=== PATIENT | female | born 1995 | race Hispanic/Latino ===

== ENCOUNTER 2018-10-24 20:00 | Inpatient (IN) | payer MEDICAID, SELFPAY ==
[2018-10-24] MEDS: Lactated Ringer's 1,000 ML IV SCH (21:00)
--- NOTE | 2018-10-24 21:09 | PDOC.FPROB ---
FMR OB H&P: HPI - History of Present Illness Chief Complaint: medically indicated IOL for gHTN Indentification: 23 yo @ 39.3 wk by 11.5 wk sono History of Present Illness: 23 yo @ 39.3 wk by 11.5 wk sono presents for medically indicated IOL 2/ 2 gHTN (starting at 36 wks). Baby is moving well, no contractions, no VB/LOF/ abnormal discharge. complicated by fractured care and obesity. Primary Care Physician: Sumanth FMR OB H&P: Current - Care : 2 Para: 1001 Gestational age: 39.3 Due date: 10/28/18 Dating Criteria: 11.5 wk sono Course/Complications: gHTN, obesity, fractured care Patient had itchy palms, bile acid level was normal. - OB Labs Blood type: A RH: positive Antibody Screen: negative HIV: negative RPR: negative HepBsAg: negative Rubella: immune 1 hour gtt: 120 GBS: negative H&H: - Anatomy Survey Anatomy survey: Normal. Anterior placent. No previa. FMR OB H&P: History - Past Medical History PMH: Obesity - OB History OB History: 1st : delivered via at 38 wks, patient had HTN at delivery - Surgical History Sx History: None - Social History Social History: Denies tobacco, alcohol, or drug use - Family History Family History: DM in mother and father HTN in father Denies fam history of cardiac problems Pt's spouse has previous child with autism. FMR OB H&P: ROS - Review of Systems General: denies: fever/chills Eyes: denies: eye pain, vision changes, scotomas ENT: denies: nasal congestion, rhinorrhea, ear pain, sore throat Cardiovascular: reports: edema (in hands). denies: chest pain, palpitation Respiratory: reports: shortness of breath. denies: cough, congestion Gastrointestinal: denies: abdominal pain, nausea, vomiting, diarrhea, constipation, bright red blood Genitourinary (Female): reports: vaginal pressure. denies: dysuria, hematuria, vaginal discharge, vaginal pain, vaginal bleeding, contractions Musculoskeletal: denies: pain, stiffness Integumentary: denies: rash, lesions Breast: denies: skin changes FMR OB H&P: Vital Signs - Maternal Vital signs: BP 138/89, Hr 98, R 16 T 98.1 - Heart Tones Baseline: 135 Variability: moderate Acceleration: present Deceleration: absent [place] contractions every: none FMR OB H&P: Physical Exam - Physical Exam General: NAD, awake, alert and oriented HEENT: normocephalic and atraumatic, PERRLA, MMM, conjunctiva clear, grossly normal hearing, oropharynx clear Neck: supple Deviation from normal: +LAD Heart: RRR, normal S1/S2, no murmurs/rubs/gallops, pulses present, other (1+ edema) General: CTAB, no respiratory distress, no wheezing Abdomen: soft, gravid Musculoskeletal: pulses present, FROM in all four extremities Skin: no rash, good tugor Lymphatic: no unusual bruising or bleeding, no petechia Psychiatric: intact recent and remote memory, good judgement and insight, normal mood and affect - Pelvic Exam Estimated Weight: 7 lbs FMR OB H&P: A/P - Problem List (1) Gestational HTN Current Visit: Yes Status: Acute Code(s): O13.9 - GESTATIONAL HTN W/O SIGNIFICANT PROTEINURIA, UNSP TRIMESTER (2) Normal in multigravida in third trimester Current Visit: Yes Status: Acute Code(s): Z34.83 - ENCOUNTER FOR SUPRVSN OF NORMAL , THIRD TRIMESTER (3) Obesity (BMI 35.0-39.9 without comorbidity) Current Visit: Yes Status: Acute Code(s): E66.9 - OBESITY, UNSPECIFIED Discussion: Date/Time: 10/24/18 2104 23 yo @ 39.3 wk by 11.5 wk sono presents for medically indicated IOL 2/ 2 gHTN #sIUP -FHTs reassuring -SVE @ 2200: 3/40%/-2 and ballotable, cytotec placed -vertex by bedside sono -GBS negative -Patient desires epidural -Plans to BF -Desires IUD for control after delivery -Augment with cytotec #gHTN -Pt reports at 36 wks -blood pressure here 138/89 -no recorded BP >160/90 -Continue to monitor her BPs -Monitor for s/s of pre-e #Obesity -BMI 36 #Interrupted PNC -PNC patient, starting at 34.4 wks from [facility] Addendum - Attending - Attending Attestation Date/Time: 10/25/18 3826 I personally discussed the management with Dr. Domínguez I agree with the History, Examination, Assessment and Plan documented above with any addition or exceptions noted below.
[2018-10-24 21:45] VITALS: BMI 37.4
[2018-10-24] MEDS ORDERED: NS / Oxytocin 40 units/1000ml 1,000 ML IV PRN (21:45)
[2018-10-24] MEDS ORDERED: Ondansetron PF 4 MG/2 ML Vial IVP PRN (21:45)
[2018-10-24] MEDS ORDERED: Ibuprofen 800 MG TAB PO PRN (21:45)
[2018-10-24] MEDS ORDERED: Promethazine HCl 25 MG/ML VIAL IM PRN (21:45)
[2018-10-24] MEDS ORDERED: Lidocaine 1% (PF) 30 ML VIAL SC PRN (21:45)
[2018-10-24] MEDS: Misoprostol 100 MCG TAB ONE (22:04)
[2018-10-24 22:09] LABS: Hemoglobin 13.3 g/dL (12.0-16.0); Mean Corpuscular HGB CONC 33.2 g/dL (32.0-36.0); Mean Corpuscular Volume 84.3 fL (78.0-98.0); Mean Platelet Volume 9.8 fL (7.4-10.4); Platelet Count 260 thou/uL (130-400); RBC Distribution Width 13.5 % (11.5-14.5); Red Blood Cell (RBC) Count 4.76 mill/uL (4.20-5.40); White Blood Cell (WBC) Count 9.1 thou/uL (4.8-10.8)
[2018-10-24 22:36] LABS: Syphilis Antibody Nonreactive (Nonreactive); Syphilis Antibody Index 0.04 S/CO (<1.00 Non-Reactive)
[2018-10-25] MEDS: Misoprostol 100 MCG TAB ONE (01:12)
--- NOTE | 2018-10-25 01:19 | PDOC.LDPN ---
Addendum entered and electronically signed by Deanne Domínguez MD 10/25/18 01:29: Addendum: SVE was 450/-2 @ 0100 on 10/25/18 Original Note: Labor & Delivery Progress Note - Subjective Subjective: painful contractions - Objective Vital signs reviewed and normal: yes General: resting SVE: 60/-2 FHT: variability present [place] contractions every: 3-5 minutes - Assessment (1) Gestational HTN Code(s): O13.9 - GESTATIONAL HTN W/O SIGNIFICANT PROTEINURIA, UNSP TRIMESTER Current Visit: Yes Status: Acute (2) Normal in multigravida in third trimester Code(s): Z34.83 - ENCOUNTER FOR SUPRVSN OF NORMAL , THIRD TRIMESTER Current Visit: Yes Status: Acute (3) Obesity (BMI 35.0-39.9 without comorbidity) Code(s): E66.9 - OBESITY, UNSPECIFIED Current Visit: Yes Status: Acute Plan: labor augmentation -: 23 yo @ 39.3 wk by 11.5 wk sono presents for medically indicated IOL 2/ 2 gHTN #sIUP -Patient is resting, starting to feel her -FHTs baseline 130, mod variability, accels present, no decels; contractions q3- 5 minutes -SVE @ 2200: 3/40%/-2 and ballotable, cytotec placed -SVE @ 0100: 4/50/-2, cytotec placed -vertex by bedside sono -GBS negative -Patient desires epidural -Plans to BF -Desires IUD for control after delivery -FLOR[place]INO of 5. Augmenting with second dose of cytotec. Recheck in 3-4 hours #gHTN -Pt reports at 36 wks -blood pressure here 138/89 -no recorded BP >160/90 -Continue to monitor her BPs -Monitor for s/s of pre-e #Obesity -BMI 36 #Interrupted PNC -PNC patient, starting at 34.4 wks from [facility] Addendum - Attending - Attending Attestation Date/Time: 10/25/18 8398 I personally discussed the management with Dr. Domínguez I agree with the History, Examination, Assessment and Plan documented above with any addition or exceptions noted below.
[2018-10-25 02:00] LABS: HBSAg Index 0.22 S/CO (0-0.99); Hep B Surf Ag Non-Reactive S/CO (NonReactive)
[2018-10-25] MEDS ORDERED: Butorphanol Tartrate 1 MG/ML VIAL SLOW IVP PRN (03:29)
--- NOTE | 2018-10-25 05:33 | PDOC.LDPN ---
Labor & Delivery Progress Note - Subjective Subjective: comfortable - Objective Vital signs reviewed and normal: yes Abnormal vital signs: one pressure with SBP >140 General: resting SVE: 4/60/-2, soft and mid position FHT: category 1 [place] contractions every: q3-5 min - Assessment (1) Gestational HTN Code(s): O13.9 - GESTATIONAL HTN W/O SIGNIFICANT PROTEINURIA, UNSP TRIMESTER Current Visit: Yes Status: Acute (2) Normal in multigravida in third trimester Code(s): Z34.83 - ENCOUNTER FOR SUPRVSN OF NORMAL , THIRD TRIMESTER Current Visit: Yes Status: Acute (3) Obesity (BMI 35.0-39.9 without comorbidity) Code(s): E66.9 - OBESITY, UNSPECIFIED Current Visit: Yes Status: Acute Plan: continue plan of care -: 23 yo @ 39.3 wk by 11.5 wk sono presents for medically indicated IOL 2/ 2 gHTN #sIUP -FHTs baseline 130, mod variability, accels present, no decels; contractions q3- 5 minutes -SVE @ 2200: 3/40%/-2 and ballotable, cytotec placed -SVE @ 0100: 4/50/-2, cytotec placed -SVE @ 0345: 4/60/-2, soft and midposition -vertex by bedside sono -GBS negative -Patient desires epidural -Plans to BF -Desires IUD for control after delivery -FLORENTINO of 9, recheck in 4 hours. Augment with pitocin. #gHTN -Pt reports at 36 wks -blood pressure here 138/89 -no recorded BP >160/90 -Continue to monitor her BPs -Monitor for s/s of pre-e #Obesity -BMI 36 #Interrupted PNC -PNC patient, starting at 34.4 wks from [facility] Addendum - Attending - Attending Attestation Date/Time: 10/25/18 9017 I personally discussed the management with Dr. Domínguez. I agree with the History, Examination, Assessment and Plan documented above with any addition or exceptions noted below.
[2018-10-25] MEDS ORDERED: NS w/ Oxytocin 10 units 500 ML IV SCH (05:45)
--- NOTE | 2018-10-25 06:11 | PDOC.LDPN ---
Labor & Delivery Progress Note - Subjective Subjective: vaginal pressure - Objective Vital signs reviewed and normal: yes General: resting Dilation: 5/60/-2 [place] contractions every: q2 minutes - Assessment (1) Gestational HTN Code(s): O13.9 - GESTATIONAL HTN W/O SIGNIFICANT PROTEINURIA, UNSP TRIMESTER Current Visit: Yes Status: Acute (2) Normal in multigravida in third trimester Code(s): Z34.83 - ENCOUNTER FOR SUPRVSN OF NORMAL , THIRD TRIMESTER Current Visit: Yes Status: Acute (3) Obesity (BMI 35.0-39.9 without comorbidity) Code(s): E66.9 - OBESITY, UNSPECIFIED Current Visit: Yes Status: Acute Plan: labor augmentation -: 23 yo @ 39.3 wk by 11.5 wk sono presents for medically indicated IOL 2/ 2 gHTN #sIUP -FHTs baseline 130, mod variability, accels present, no decels; contractions q3- 5 minutes -SVE @ 2200: 3/40%/-2 and ballotable, cytotec placed -SVE @ 0100: 4/50/-2, cytotec placed -SVE @ 0345: 4/60/-2, soft and midposition -SVE @ 0600: 4/60/-2, cxns q2 minutes -vertex by bedside sono -GBS negative -Patient desires epidural -Plans to BF -Desires IUD for control after delivery -FLOR[place]INO of 9, recheck in 4 hours. Augment with pitocin once contractions space out. #gHTN -Pt reports at 36 wks -blood pressure here 138/89 -no recorded BP >160/90 -Continue to monitor her BPs -Monitor for s/s of pre-e #Obesity -BMI 36 #Interrupted PNC -PNC patient, starting at 34.4 wks from [facility] Addendum - Attending - Attending Attestation Date/Time: 10/25/18 8105 I personally discussed the management with Dr. Domínguez. I agree with the History, Examination, Assessment and Plan documented above with any addition or exceptions noted below. Would AROM when able.
[2018-10-25] MEDS: Butorphanol Tartrate 1 MG/ML VIAL SLOW IVP PRN ×2 (07:45→12:05)
[2018-10-25] MEDS: Lactated Ringer's 1,000 ML IV SCH ×2 (08:44→14:36)
--- NOTE | 2018-10-25 11:07 | PDOC.LDPN ---
Labor & Delivery Progress Note - Subjective Subjective: painful contractions - Objective Vital signs reviewed and normal: yes General: breathing through contractions Uterine fundus: non tender Dilation: 4 Effacement: 50% Station: -3 FHT: category 1 [place] contractions every: 4-5min - Assessment (1) Normal in multigravida in third trimester Code(s): Z34.83 - ENCOUNTER FOR SUPRVSN OF NORMAL , THIRD TRIMESTER Current Visit: Yes Status: Acute (2) Obesity (BMI 35.0-39.9 without comorbidity) Code(s): E66.9 - OBESITY, UNSPECIFIED Current Visit: Yes Status: Acute Plan: continue plan of care, labor augmentation -: 23 yo @39.3wk by 11.5wk sono presents for medically indicated IOL 2/2 gHTN sIUP - FHTs 130, Cat 1 - Vertex by bedside sono - GBS negative - Patient desires epidural, pain currently controlled with Stadol - Plans to Breastfeed - Desires IUD for control after delivery - Continue pitocin for labor augmentation gHTN - Pt reports at 36 wks - BPs here controlled - Continue to monitor Obesity Interrupted PNC - PNC patient, starting at 34.4 wks from [facility]
--- NOTE | 2018-10-25 12:14 | PDOC.LDPN ---
Labor & Delivery Progress Note - Subjective Subjective: painful contractions - Objective Vital signs reviewed and normal: yes General: breathing through contractions Uterine fundus: non tender Dilation: 4 Effacement: 50% Station: -3 FHT: category 1 [place] contractions every: 3-4min AROM: clear fluid IUPC placed: yes - Assessment (1) Normal in multigravida in third trimester Code(s): Z34.83 - ENCOUNTER FOR SUPRVSN OF NORMAL , THIRD TRIMESTER Current Visit: Yes Status: Acute (2) Obesity (BMI 35.0-39.9 without comorbidity) Code(s): E66.9 - OBESITY, UNSPECIFIED Current Visit: Yes Status: Acute Plan: continue plan of care, labor augmentation -: 23 yo @39.3wk by 11.5wk sono presents for medically indicated IOL 2/2 gHTN sIUP - FHTs 130, Cat 1 - Vertex by bedside sono - GBS negative - Patient desires epidural, pain currently controlled with Stadol - Plans to Breastfeed - Desires IUD for control after delivery - Continue pitocin for labor augmentation - aROM at 1145 with clear fluid, IUPC placed gHTN - BPs here controlled - Continue to monitor Obesity Interrupted PNC - PNC patient, starting at 34.4 wks from [facility]
[2018-10-25] MEDS ORDERED: Fentanyl 4 mcg/Bup 0.1% Cadd 100 ML ONE (13:55)
--- NOTE | 2018-10-25 15:24 | PDOC.LDPN ---
Labor & Delivery Progress Note - Subjective Subjective: comfortable - Objective Vital signs reviewed and normal: yes General: NAD, resting Uterine fundus: non tender Dilation: 7 Effacement: 90% Station: -1 FHT: category 1 (120/moderate/+ accels/no decels) [place] contractions every: 4-5min AROM: clear fluid IUPC placed: yes FSE placed: yes - Assessment (1) Normal in multigravida in third trimester Code(s): Z34.83 - ENCOUNTER FOR SUPRVSN OF NORMAL , THIRD TRIMESTER Current Visit: Yes Status: Acute (2) Obesity (BMI 35.0-39.9 without comorbidity) Code(s): E66.9 - OBESITY, UNSPECIFIED Current Visit: Yes Status: Acute Plan: continue plan of care, labor augmentation -: 23 yo @39.3wk by 11.5wk sono presents for medically indicated IOL 2/2 gHTN sIUP - FHTs 120, Cat 1 - Vertex by bedside sono - GBS negative - Plans to Breastfeed, IUD for contraception after delivery - Pain well controlled with epidural - Continue pitocin for labor augmentation - aROM at 1145 with clear fluid, IUPC placed - FSE placed at 1530 gHTN - BPs here controlled - Continue to monitor Obesity Interrupted PNC - PNC patient, starting at 34.4 wks from [facility]
[2018-10-25] MEDS ORDERED: Naloxone HCl 0.4 mg/ml Vial IVP PRN ×2 (17:18)
[2018-10-25] MEDS ORDERED: Lactated Ringer's 500 ML IV PRN (17:18)
[2018-10-25] MEDS ORDERED: Eucerin (Mineral Oil/Petrolatum,White) 30 gm Jar TOP PRN (17:18)
[2018-10-25] MEDS ORDERED: ePHEDrine/0.9% NaCl/PF SYRINGE 50 mg/10 ml SLOW IVP PRN (17:18)
[2018-10-25] MEDS ORDERED: Promethazine HCl 25 MG/ML VIAL IM PRN (17:18)
[2018-10-25] MEDS ORDERED: Acetaminophen 325 MG TAB PO PRN (17:18)
[2018-10-25] MEDS ORDERED: diphenhydrAMINE 50 MG/ML VIAL IVP PRN (17:18)
[2018-10-25] MEDS ORDERED: Ondansetron PF 4 MG/2 ML Vial IVP PRN ×2 (17:18→22:00)
[2018-10-25] MEDS ORDERED: Fentanyl 4 mcg/Bupivacaine 0.1% Cassette 100 ML EPIDURAL SCH (17:30)
[2018-10-25] MEDS ORDERED: Communication Order-Pharmacy FS SCH (17:30)
--- NOTE | 2018-10-25 20:13 | PDOC.EVN ---
Event Note - Event Note Event Note: I was present, assisted and supervised the of male @18:36 to a 23 yo @39.3 weeks. Placenta delivered spontaneously and intact. 3V cord. 2* perineal lac repaired with 3-0 vicryl in usual fashion. Good hemostasis. EBL 450 mL. Residents: [place].
[2018-10-25] MEDS ORDERED: Preparation H Ointment 28 GM TUBE PR PRN (22:00)
[2018-10-25] MEDS ORDERED: Adacel (T-DAP) 0.5 ML SYRINGE IM ONE (22:00)
[2018-10-25] MEDS ORDERED: NS / Oxytocin 40 units/1000ml 1,000 ML IV SCH (22:00)
[2018-10-25] MEDS ORDERED: Benzocaine/Menthol 20-0.5% 60 ML CAN TOP PRN (22:00)
[2018-10-25] MEDS ORDERED: Milk Of Magnesia 30 ML UDCUP PO PRN (22:00)
[2018-10-25] MEDS ORDERED: diphenhydrAMINE 25 MG CAP PO PRN (22:00)
[2018-10-25] MEDS ORDERED: Lanolin Ointment 7 GM TUBE TOP PRN (22:00)
[2018-10-25] MEDS ORDERED: Bisacodyl 10 MG SUPP PR PRN (22:00)
[2018-10-26] MEDS: Misoprostol 100 MCG TAB VAG SCH (02:36)
[2018-10-26] MEDS: Ibuprofen 800 MG TAB PO SCH ×3 (02:38→14:18)
[2018-10-26] MEDS: Lactated Ringer's 1,000 ML IV SCH (06:52)
--- NOTE | 2018-10-26 07:34 | PDOC.PP ---
Post Progress Note Post Day #: 1 Subjective: 23 yo @39.4wk by 11.5wk batool presents for medically indicated IOL 2/2 gHTN now s/p , POD #1. Doing well. Pain controlled. Ambulating, voiding. Minimal vaginal bleeding. Had not passed gas or stooled yet at this time. PO intake tolerated: yes Flatus: no Ambulation: yes Vital Signs (12 hours) Temp Pulse Resp BP BP 10/26/18 04:21 98.0 F 83 18 109/55 L 18 23:18 72 17 107/58 L 18 22:21 77 18 126/66 18 21:15 98.5 F 80 18 116/59 L Weight Weight 105.233 kg - Physical Examination General: NAD Cardiovascular: no m/r/g, RRR Respiratory: clear to auscultation bilaterally Abdominal: lochia (minimal), no distention, appropriately TTP Fundus firm & at: U-1 Neurological: no gross focal deficits Psychiatric: A&Ox3, normal affect Result Diagrams: 10/24/18 21:10 Additional Labs: Post Labs Blood Type A POSITIVE 10/24/18 21:10 Hep Bs Antigen Non-Reactive S/CO (NonReactive) 10/24/18 21:45 (1) Gestational HTN Code(s): O13.9 - GESTATIONAL HTN W/O SIGNIFICANT PROTEINURIA, UNSP TRIMESTER Status: Acute (2) Normal in multigravida in third trimester Code(s): Z34.83 - ENCOUNTER FOR SUPRVSN OF NORMAL , THIRD TRIMESTER Status: Acute (3) Obesity (BMI 35.0-39.9 without comorbidity) Code(s): E66.9 - OBESITY, UNSPECIFIED Status: Acute (4) (normal spontaneous vaginal delivery) Code(s): O80 - ENCOUNTER FOR FULL-TERM UNCOMPLICATED DELIVERY Status: Acute - Assessment/Plan 23 yo @39.4wk by 11.5wk batool presents for medically indicated IOL 2/2 gHTN now s/p , POD #1. sIUP, delivered - @ 39.4wks yesterday on 10/26/18 @ 1837, with one second degree laceration , s/p repair with good hemostasis -Encourage ambulation, continue pain control with ibuprofen 800mg TID and tylenol prn, continue to monitor I/Os -Likely dc tomorrow am. Gestational HTN - BPs here controlled - Continue to monitor Obesity -encouraged low carb diet and exercise Dispo: likely dc tomorrow
[2018-10-26 08:40] LABS: Hemoglobin 10.7 g/dL (12.0-16.0); Mean Corpuscular HGB CONC 32.1 g/dL (32.0-36.0); Mean Corpuscular Hemoglobin 27.5 pg (27.0-31.0); Mean Corpuscular Volume 85.7 fL (78.0-98.0); Mean Platelet Volume 9.4 fL (7.4-10.4); Platelet Count 212 thou/uL (130-400); RBC Distribution Width 13.5 % (11.5-14.5); Red Blood Cell (RBC) Count 3.91 mill/uL (4.20-5.40); White Blood Cell (WBC) Count 11.3 thou/uL (4.8-10.8)
[2018-10-26] MEDS ORDERED: Prenatal Vitamin 1 TAB PO SCH ×2 (09:00)
[2018-10-26] MEDS ORDERED: Docusate Calcium (SURFAK) 240 MG CAP PO SCH (09:00)
[2018-10-26] MEDS: Ferrous Sulfate 325 MG TAB PO SCH ×2 (09:02→18:14)
--- NOTE | 2018-10-26 09:32 | OP ---
DATE OF PROCEDURE: 10/25/2018 DELIVERING PHYSICIANS: 1. Patty Porter MD, PGY-1. 2. Beverly Perry MD, PGY-2. ATTENDING Aleyda Saenz MD PROCEDURE PERFORMED: Spontaneous vaginal delivery. ANESTHESIA: Epidural. ESTIMATED BLOOD LOSS: 450 mL. PREOPERATIVE DIAGNOSES: 1. Intrauterine in induction of labor for gestational hypertension. 2. Interrupted care. POSTOPERATIVE DIAGNOSES: 1. Term intrauterine , delivered. 2. Interrupted care. INDICATIONS: A 23-year-old female presents for induction of labor due to gestational hypertension. DELIVERY NOTE: This is a 23-year-old female at 39 weeks and 3 days, who delivered a viable male infant at 1836 hours. Following an uneventful antepartum course, a vigorous male was delivered over an intact peritoneum in occiput anterior position. Anterior shoulder and then remainder of the body delivered. No nuchal cord. The head was held down and mouth and nares were bulb suctioned. Cord clamped after delayed cord clamping, cut and cord blood collected. Placenta delivered intact in the Ghosh position with three-vessel cord noted. Fundal massage was performed and the fundus was firm. The cervix and vagina were inspected and found to have a second-degree perineal laceration, repaired with 3-[address] and hemostasis was achieved. went to the nursery in good condition for routine care. Apgars were 8 and 9 at 1 and 5 minutes respectively. The patient tolerated delivery well and went to after routine recovery care. Job ID: [id number] [facility]
[2018-10-26 21:21] VITALS: BP 122/73; TEMP 97.7
== END 2018-10-26 21:30 | disposition home or self-care (01) | DRG 807 ==
LOC: L&D 20:15 → 3SE 10-25 23:05
PROC: 3E0P7VZ Introduction of Hormone into Female Reproductive, Via Natural or Artificial Opening (ICD-10-PCS; 2018-10-24)
PROC: 10E0XZZ Delivery of Products of Conception, External Approach (ICD-10-PCS; principal; 2018-10-25)
PROC: 0KQM0ZZ Repair Perineum Muscle, Open Approach (ICD-10-PCS; 2018-10-25)
PROC: 10907ZC Drainage of Amniotic Fluid, Therapeutic from Products of Conception, Via Natural or Artificial Opening (ICD-10-PCS; 2018-10-25)
PROC: 10H07YZ Insertion of Other Device into Products of Conception, Via Natural or Artificial Opening (ICD-10-PCS; 2018-10-25)
DX: O13.4 Gestational [pregnancy-induced] hypertension without significant proteinuria, complicating childbirth (principal); O99.214 Obesity complicating childbirth; E66.9 Obesity, unspecified; O70.1 Second degree perineal laceration during delivery; Z68.36 Body mass index [BMI] 36.0-36.9, adult; Z3A.39 39 weeks gestation of pregnancy; Z37.0 Single live birth
CPT/HCPCS: 36415; 51702; 85027; 86780; 86850; 86900; 86901; 87340; J0595